=== PATIENT | female | born 1950 | race Caucasian/White ===

== ENCOUNTER 2025-01-08 07:52 | Day surgery (SDC) | payer MEDICARE ==
[2025-01-08] MEDS ORDERED: LIDOCAINE HCL 2% 100 MG/5 ML IJ ONE (07:53)
[2025-01-08] MEDS ORDERED: methylPREDNISolone acetate IM ONE (07:53)
[2025-01-08] MEDS ORDERED: propofoL IV ONE (09:26)
--- NOTE | 2025-01-08 10:56 | XRAY ---
Indication: Bilateral L4-S1 MBB. Intraoperative fluoroscopy provided for 11 seconds. Single digital spot image submitted for interpretation demonstrates posterior needle tips projecting over expected left and right L4-S1 nerve roots. Correlate with intraoperative findings/report.
--- NOTE | 2025-01-08 12:22 | XRAY ---
11 seconds of fluoroscopy was used in surgery for a bilateral L4-S1 MBB.
== END 2025-01-08 09:59 | disposition home or self-care (01) ==
LOC: SDC-PAIN 07:52
PROVIDERS: ATTEND Psychiatry & Neurology Pain Medicine
DX: M47.817 Spondylosis without myelopathy or radiculopathy, lumbosacral region (principal); E11.9 Type 2 diabetes mellitus without complications
CPT/HCPCS: 64493; 64494; 72020; 82947; J1010; J2704